=== PATIENT | male | born 1960 ===

== ENCOUNTER 2017-02-08 07:02 | Emergency (ER) | payer BC ==
[2017-02-08 07:25] VITALS: BP 146/90
--- NOTE | 2017-02-08 07:53 | UC ---
Respiratory Complaint HPI - HPI Summary HPI Summary: 56 yo male states he has been ill for about 6 weeks Waxing and waning nasal congestion/post nasal drip as well as cough(non productive) feverish and chill low energy no CP or SOB symptoms worse the past 2 weeks - History of Current Complaint Chief Complaint: UCRespiratory Stated Complaint: SINUS ISSUE Time Seen by Provider: 02/08/17 07:41 Hx Obtained From: Patient Onset/Duration: Gradual Onset, Lasting Days Timing: Constant Severity Initially: Mild Severity Currently: Moderate Pain Intensity: 0 Pain Scale Used: 0-10 Numeric Character: Cough: Nonproductive Aggravating Factors: Nothing Alleviating Factors: Nothing Associated Signs And Symptoms: Positive: Fever, Chills, Nasal Congestion, Sinus Discomfort - Allergies/Home Medications Allergies/Adverse Reactions: Allergies Allergy/AdvReac Type Severity Reaction Status Date / Time No Known Allergies Allergy Verified 02/08/17 07:26 Home Medications: Home Medications Aspirin [Aspirin 81 MG TAB] 81 mg PO DAILY 02/08/17 [History Confirmed 02/08/17] Atorvastatin* [Lipitor 40 MG*] 40 mg PO DAILY 02/08/17 [History Confirmed ] Cholecalciferol [Vitamin D3] 1 tab PO DAILY 02/08/17 [History Confirmed 02/08/17 ] Duloxetine HCl 60 mg PO BID 02/08/17 [History Confirmed 02/08/17] Gabapentin CAP(*) [Neurontin 300 CAP(*)] 600 mg PO BID 02/08/17 [History Confirmed 02/08/17] Isosorbide Mononitrate ER TAB* [Imdur ER TAB*] 30 mg PO DAILY 02/08/17 [History Confirmed 02/08/17] Levothyroxine TAB* [Synthroid 25 MCG TAB*] 25 mcg PO DAILY 02/08/17 [History Confirmed 02/08/17] Multiple Vitamins W/ Minerals [Multivitamin] 1 tab PO DAILY 02/08/17 [History Confirmed 02/08/17] [place] [facility]-3 Fatty Acids [Fish Oil] 1 tab PO DAILY 02/08/17 [History Confirmed ] busPIRone TAB* [Buspar TAB*] 10 mg PO BID 02/08/17 [History Confirmed 02/08/17] celeCOXIB CAP* [Celebrex CAP*] 200 mg PO DAILY 02/08/17 [History Confirmed 02/08] PMH/Surg Hx/FS Hx/Imm Hx Endocrine History: Dyslipidemia Cardiovascular History: Cardiac Disease - ???states he had a cardiac cath years ago and was cleared by supply chain logistics manager, Hypertension Psychological History: Depression - Surgical History Surgical History: Yes Surgery Procedure, Year, and Place: Vein stripping in legs, fusion of C 5 & 6. L2,4,5 fusion - Family History Known Family History: Positive: Cardiac Disease, Hypertension Negative: Diabetes - Social History Alcohol Use: Rare Substance Use Type: None Smoking Status (MU): Light Every Day Tobacco Smoker Amount Used/How Often: 3 cig/day Cessation Counseling: Patient Advised to Stop - Immunization History Most Recent Influenza Vaccination: 12/2016 Review of Systems Constitutional: Fever, Chills, Fatigue Skin: Negative Eyes: Negative ENT: Nasal Discharge, Sinus Congestion, Sinus Pain/Tenderness Respiratory: Cough Cardiovascular: Negative Gastrointestinal: Negative Genitourinary: Negative Motor: Negative Neurovascular: Negative Musculoskeletal: Negative Neurological: Negative Psychological: Negative Is Patient Immunocompromised?: No All Other Systems Reviewed And Are Negative: Yes Physical Exam Triage Information Reviewed: Yes Appearance: Well-Appearing, No Pain Distress, Well-Nourished Vital Signs: Initial Vital Signs Temp 97.5 F 02/08/17 07:18 Pulse 73 02/08/17 07:18 Resp 20 02/08/17 07:18 BP 146/90 02/08/17 07:18 Pulse Ox 97 02/08/17 07:18 Vital Signs Reviewed: Yes Eyes: Positive: Conjunctiva Clear ENT: Positive: Hearing grossly normal, Nasal congestion, TMs normal, Sinus tenderness - mild, Uvula midline. Negative: Nasal drainage, TM bulging, TM dull , TM red, Tonsillar swelling, Tonsillar exudate, Trismus, Muffled voice, Hoarse voice Neck: Positive: Supple, Nontender, No Lymphadenopathy Respiratory: Positive: Lungs clear, Normal breath sounds, No respiratory distress, No accessory muscle use Cardiovascular: Positive: RRR, No Murmur Musculoskeletal: Positive: ROM Intact, No Edema Neurological: Positive: Alert Psychological Exam: Normal Skin Exam: Normal UC Diagnostic Evaluation - Laboratory O2 Sat by Pulse Oximetry: 97 - broderick/not hypoxic - Radiology Xray Interpretation: No Acute Changes - CXR Radiology Interpretation Completed By: Radiologist Respiratory Course/Dx - Differential Dx/Diagnosis Provider Diagnoses: acute sinusitis. acute bronchitis Discharge - Discharge Plan Condition: Stable Disposition: HOME Patient Education Materials: Acute Bronchitis (ED), Sinusitis (ED) Referrals: Flavio Walker [Primary Care Provider] - 1 Week (if not better) Additional Instructions: recheck for new or worsening symptoms
--- NOTE | 2017-02-08 08:27 | RAD ---
INDICATION: Cough and congestion COMPARISON: None TECHNIQUE: PA and lateral views of the chest were obtained. FINDINGS: The heart and mediastinum are normal in size and contour. The lungs are grossly clear. There is no evidence of large pleural effusion. Plate and screw fixator is incidentally noted overlying the lower cervical spine. There is no radiographic evidence of free air beneath the diaphragm IMPRESSION: No radiographic evidence of acute cardiopulmonary disease.
== END 2017-02-08 08:52 | disposition home or self-care (01) ==
LOC: UCEAST 07:02
DX: J01.90 Acute sinusitis, unspecified (principal); J20.9 Acute bronchitis, unspecified; E78.5 Hyperlipidemia, unspecified; I10 Essential (primary) hypertension; F32.9 Major depressive disorder, single episode, unspecified; Z72.0 Tobacco use
CPT/HCPCS: 71020; 99212; G0463